=== PATIENT | male | born 1960 | race Caucasian/White ===

== ENCOUNTER 2019-06-29 13:16 | Emergency (ER) | payer SELFPAY ==
[2019-06-29] MEDS ORDERED: BENZONATATE 100 MG CAPSULE PO ONE ×2 (14:17→16:53)
[2019-06-29] MEDS ORDERED: NORMAL SALINE 1000 ML 1,000 ML IV ONE ×2 (14:17→16:36)
--- NOTE | 2019-06-29 14:18 | ER Document Report ---
ED Medical Screen (RME) - General Chief Complaint: Cough Stated Complaint: COUGH Time Seen by Provider: 06/29/19 14:10 Primary Care Provider: KEYLA PRIEST [Primary Care Provider] - Follow up as needed Notes: Patient is a 58-year-old male who presents the emergency department with a cough. He has had his cough for the last 4 days. Patient also admits to body aches. Patient has history of pneumonia in the past. Patient states that he also has bilateral ear pain. He has history of swimmer's ear. Exam: Cough noted. Clear lung sounds throughout. Tachycardia. I have greeted and performed a rapid initial assessment of this patient. A comprehensive ED assessment and evaluation of the patient, analysis of test results and completion of medical decision making process will be conducted by an additional ED providers. TRAVEL OUTSIDE OF THE [place] IN LAST 30 DAYS: No Past Medical History - Social History Chew tobacco use (# tins/day): No Frequency of alcohol use: Occasional Physical Exam - Vital signs Vitals: Temp Pulse Resp BP Pulse Ox 98.2 F 116 H 18 151/82 H 96 06/29/19 13:40 06/29/19 13:40 06/29/19 13:40 06/29/19 13:40 06/29/19 13:40 Course - Vital Signs Vital signs: Temp Pulse Resp BP Pulse Ox 98.2 F 116 H 18 151/82 H 96 06/29/19 13:40 06/29/19 13:40 06/29/19 13:40 06/29/19 13:40 06/29/19 13:40 Doctor's Discharge - Discharge Referrals: KEYLA PRIEST [Primary Care Provider] - Follow up as needed
[2019-06-29 14:37] LABS: ABSOLUTE BASOPHILS # (AUTO) 0.1 10^3/uL (0.0-0.2); ABSOLUTE EOSINOPHILS # (AUTO) 0.1 10^3/uL (0.0-0.6); ABSOLUTE LYMPHOCYTES (AUTO) 1.9 10^3/uL (0.5-4.7); ABSOLUTE MONOCYTES (AUTO) 0.9 10^3/uL (0.1-1.4); ABSOLUTE NEUT (AUTO) 5.2 10^3/uL (1.7-8.2); BASOPHILS % (AUTO) 0.7 % (0-2); EOSINOPHILS % (AUTO) 1.8 % (0-6); HEMATOCRIT 48.4 % (37.9-51.0); HEMOGLOBIN 16.5 g/dL (13.5-17.0); LYMPHOCYTES % (AUTO) 23.1 % (13-45); MEAN CORPUSCULAR HEMOGLOBIN 33.6 pg (27.0-33.4); MEAN CORPUSCULAR HGB CONC 34.2 g/dL (32.0-36.0); MEAN CORPUSCULAR VOLUME 98 fl (80-97); MONOCYTES % (AUTO) 11.4 % (3-13); PLATELET COUNT 266 10^3/uL (150-450); RED BLOOD COUNT 4.92 10^6/uL (4.35-5.55); RED CELL DISTRIBUTION WIDTH 14.2 % (11.5-14.0); TOTAL CELLS COUNTED % (AUTO) 100 %; WHITE BLOOD COUNT 8.2 10^3/uL (4.0-10.5)
[2019-06-29 14:56] LABS: ALBUMIN 4.3 g/dL (3.5-5.0); ALKALINE PHOSPHATASE 80 U/L (38-126); ANION GAP 12 (5-19); ASPARTATE AMINO TRANSFERASE 32 U/L (17-59); BILIRUBIN,DIRECT 0.2 mg/dL (0.0-0.4); BILIRUBIN,TOTAL 1.3 mg/dL (0.2-1.3); BLOOD UREA NITROGEN 10 mg/dL (7-20); CALCIUM 9.2 mg/dL (8.4-10.2); CARBON DIOXIDE 25 mmol/L (22-30); CHLORIDE 102 mmol/L (98-107); GLUCOSE 92 mg/dL (75-110); POTASSIUM 4.4 mmol/L (3.6-5.0); TOTAL PROTEIN 7.7 g/dL (6.3-8.2)
--- NOTE | 2019-06-29 15:11 | RADIOLOGY REPORT (SQ) ---
EXAM DESCRIPTION: CHEST 2 VIEWS COMPLETED DATE/TIME: 06/29/2019 2:37 pm REASON FOR STUDY: cough; body aches COMPARISON: None. EXAM PARAMETERS: NUMBER OF VIEWS: two views TECHNIQUE: Digital Frontal and Lateral radiographic views of the chest acquired. RADIATION DOSE: NA LIMITATIONS: none FINDINGS: LUNGS AND PLEURA: Strand of subsegmental atelectasis or parenchymal band in the right midd le lobe. There is no consolidation, pleural effusion or pneumothorax. MEDIASTINUM AND HILAR STRUCTURES: No mediastinal or hilar contour abnormality. HEART AND VASCULAR STRUCTURES: The cardiac silhouette and pulmonary vasculature are within normal [place] its. BONES: No acute findings. HARDWARE: None. OTHER: No other finding. IMPRESSION: No acute cardiopulmonary process. TECHNICAL DOCUMENTATION: JOB ID: [id number] [employer]- All Rights Reserved Reading location - IP/workstation name: [email or web address]
[2019-06-29 18:28] VITALS: BP 159/116
--- NOTE | 2019-06-29 18:48 | ER Document Report ---
ED Respiratory Problem - General Chief Complaint: Cough Stated Complaint: COUGH Time Seen by Provider: 06/29/19 14:10 Primary Care Provider: KEYLA PRIEST [NO LOCAL MD] - Follow up as needed Notes: Patient is a 58-year-old male history of hypertension on no medications presents to the emergency department for generalized cough for the last 4 days. He is denying any fevers. Is admitting to some generalized nasal congestion. States he did feel some generalized body aches but is denying that complaint at this time. Patient's denying any rashes, chest pain, shortness of breath, abdominal pain. Patient voices sometimes when he lays flat he feels the "phlegm in my throat" patient voices he has not been taking any [id number]-[id number] medications for same. Patient also voices he is an avid swimmer. Is concerned for otitis externa bilaterally. Patient's initial heart rate was noted to be elevated at today's visit, he was treated with normal saline solution and his heart rate has come down to normal. TRAVEL OUTSIDE OF THE [place] IN LAST 30 DAYS: No Past Medical History - General Information source: Patient - Social History Smoking Status: Never Smoker Chew tobacco use (# tins/day): No Frequency of alcohol use: Occasional Family History: Reviewed & Not Pertinent Patient has suicidal ideation: No Patient has homicidal ideation: No Review of Systems - Review of Systems Constitutional: denies: Fever EENT: See HPI Cardiovascular: See HPI Respiratory: See HPI Gastrointestinal: No symptoms reported Genitourinary: No symptoms reported Male Genitourinary: No symptoms reported Musculoskeletal: See HPI Skin: No symptoms reported Hematologic/Lymphatic: No symptoms reported Neurological/Psychological: No symptoms reported Physical Exam - Vital signs Vitals: Temp Pulse Resp BP Pulse Ox 98.2 F 116 H 18 151/82 H 96 06/29/19 13:40 06/29/19 13:40 06/29/19 13:40 06/29/19 13:40 06/29/19 13:40 - Notes Notes: GENERAL: Alert, interacts well. No acute distress. HEAD: Normocephalic, atraumatic. EYES: Pupils equal, round, and reactive to light. Extraocular movements intact. ENT: Oral mucosa moist, tongue midline. Nares patent, swollen turbinates noted bilaterally, TM's intact, nonerythematous, nonbulging bilaterally. No tragal tenderness noted bilaterally, bilateral canals within normal limits. NECK: Full range of motion. Supple. Trachea midline. No lymphadenopathy appreciated LUNGS: Clear to auscultation bilaterally, no wheezes, rales, or rhonchi. No respiratory distress. HEART: Regular rate and rhythm. No murmur ABDOMEN: Soft, non-tender. Non-distended. Bowel sounds present in all 4 quadrants. EXTREMITIES: Moves all 4 extremities spontaneously. No edema, normal radial and dorsalis pedis pulses bilaterally. No cyanosis. BACK: no cervical, thoracic, lumbar midline tenderness. No saddle anesthesia, normal distal neurovascular exam. NEUROLOGICAL: Alert and oriented x3. Normal speech. cranial nerves II through XII grossly intact PSYCH: Normal affect, normal mood. SKIN: Warm, dry, normal turgor. No rashes or lesions noted. Course - Re-evaluation Re-evalutation: 06/29/19 18:45 Laboratory 06/29/19 06/29/19 14:25 14:25 WBC 8.2 RBC 4.92 Hgb 16.5 Hct 48.4 MCV 98 H MCH 33.6 H MCHC 34.2 RDW 14.2 H Plt Count 266 Lymph % (Auto) 23.1 [place] % (Auto) 11.4 Eos % (Auto) 1.8 Baso % (Auto) 0.7 Absolute Neuts (auto) 5.2 Absolute Lymphs (auto) 1.9 Absolute Monos (auto) 0.9 Absolute Eos (auto) 0.1 Absolute Basos (auto) 0.1 Seg Neutrophils % 63.0 Sodium 139.0 Potassium 4.4 Chloride 102 Carbon Dioxide 25 Anion Gap 12 BUN 10 Creatinine 0.99 Est GFR ( Amer) > 60 Est GFR (MDRD) Non-Af > 60 Glucose 92 Calcium 9.2 Total Bilirubin 1.3 Direct Bilirubin 0.2 Neonat Total Bilirubin Not Reportable Neonat Direct Bilirubin Not Reportable Neonat Indirect Bili Not Reportable AST 32 ALT 37 Alkaline Phosphatase 80 Total Protein 7.7 Albumin 4.3 Chest X-Ray 06/29/19 14:17 IMPRESSION: No acute cardiopulmonary process. Upon my assessments patient's lung sounds are clear and equal in all schreiber. I discussed with him this is likely an upper respiratory infection. I discussed this is likely viral in nature and he does not need antibiotics. Patient then voices "I will just take my brothers antibiotics." I have discussed with him that is not my recommendation. I have discussed following up with a primary care provider for a second opinion as needed. Patient is no longer tachycardic, stable for discharge. - Vital Signs Vital signs: Temp Pulse Resp BP Pulse Ox 98.0 F 101 H 20 159/116 H 97 06/29/19 18:23 06/29/19 18:23 06/29/19 18:23 06/29/19 18:23 06/29/19 18:23 - Laboratory Result Diagrams: 06/29/19 14:25 06/29/19 14:25 Laboratory results interpreted by me: 06/29/19 14:25 MCV 98 H MCH 33.6 H RDW 14.2 H Discharge - Discharge Clinical Impression: Upper respiratory infection Qualifiers: URI type: unspecified viral URI Qualified Code(s): J06.9 - Acute upper respiratory infection, unspecified Condition: Stable Disposition: HOME, SELF-CARE Instructions: Upper Respiratory Illness ([facility]), Viral Syndrome ([facility]) Additional Instructions: As we discussed you have been seen and treated in the emergency department for an upper respiratory infection. Your chest x-ray reveals no signs of pneumonia, your lung sounds are clear and equal in all schreiber. Is very important that you get plenty of rest, stay well-hydrated and follow-up with a primary care provider. Phone numbers will be provided in this packet for [facility], [facility], these are clinics you can go to although you are uninsured. Please return to the emergency room for any concerns. Prescriptions: Mometasone Furoate [Nasonex] 1 spray NS Q12 #1 spray.pump Benzonatate [Tessalon Perles 100 mg Capsule] 100 mg PO ASDIR PRN #20 capsule PRN Reason: Forms: Return to Work, Elevated Blood Pressure Referrals: [facility] [Provider Group] - Follow up as needed [facility] [Provider Group] - Follow up as needed
== END 2019-06-29 19:00 | disposition home or self-care (01) ==
LOC: ER 13:16
DX: J06.9 Acute upper respiratory infection, unspecified (principal); B97.89 Other viral agents as the cause of diseases classified elsewhere; R05 Cough; I10 Essential (primary) hypertension; R09.81 Nasal congestion; R00.0 Tachycardia, unspecified
CPT/HCPCS: 99283; 96360; 36415; 85025; 80053; 71046; J7030

== ENCOUNTER → 2019-10-29 | Outpatient (CLI) | payer OTHER ==
[2019-10-29 13:14] LABS: ABSOLUTE EOSINOPHILS # (AUTO) 0.1 10^3/uL (0.0-0.6); BASOPHILS % (AUTO) 0.5 % (0-2); RED CELL DISTRIBUTION WIDTH 14.5 % (11.5-14.0); TOTAL CELLS COUNTED % (AUTO) 100 %
[2019-10-29 13:20] LABS: ABSOLUTE LYMPHOCYTES (AUTO) 1.9 10^3/uL (0.5-4.7); ABSOLUTE MONOCYTES (AUTO) 0.6 10^3/uL (0.1-1.4); EOSINOPHILS % (AUTO) 1.3 % (0-6); HEMATOCRIT 48.5 % (37.9-51.0); HEMOGLOBIN 16.6 g/dL (13.5-17.0); LYMPHOCYTES % (AUTO) 28.7 % (13-45); MEAN CORPUSCULAR HEMOGLOBIN 33.8 pg (27.0-33.4); MEAN CORPUSCULAR HGB CONC 34.2 g/dL (32.0-36.0); MEAN CORPUSCULAR VOLUME 99 fl (80-97); MONOCYTES % (AUTO) 8.7 % (3-13); PLATELET COUNT 290 10^3/uL (150-450); SEGMENTED NEUTROPHILS % (AUTO) 60.8 % (42-78); WHITE BLOOD COUNT 6.5 10^3/uL (4.0-10.5)
[2019-10-29 13:43] LABS: ALBUMIN 4.4 g/dL (3.5-5.0); ALKALINE PHOSPHATASE 85 U/L (38-126); ANION GAP 8 (5-19); ASPARTATE AMINO TRANSFERASE 43 U/L (17-59); BILIRUBIN,TOTAL 1.3 mg/dL (0.2-1.3); BLOOD UREA NITROGEN 15 mg/dL (7-20); CARBON DIOXIDE 28 mmol/L (22-30); CHLORIDE 102 mmol/L (98-107); CHOLESTEROL 250.64 mg/dL (0-200); GLUCOSE 90 mg/dL (75-110); POTASSIUM 5.2 mmol/L (3.6-5.0); TOTAL PROTEIN 7.6 g/dL (6.3-8.2); TRIGLYCERIDES 243 mg/dL (<150)
[2019-10-29 13:54] LABS: DIRECT LDL 174 mg/dL (<100)
[2019-10-29 13:55] LABS: VLDL CHOLESTEROL 48.6 mg/dL (10-31)
[2019-10-30 11:37] LABS: HEPATITS B SURFACE ANTIGEN Negative (Negative)
[2019-10-30 12:30] LABS: HEPATITIS C VIRUS ANTIBODY 2.3 s/co ratio (0.0-0.9)
== END ==
LOC: OD 12:39
DX: I10 Essential (primary) hypertension (principal)
CPT/HCPCS: 36415; 80053; 80061; 80074; 83036; 84153; 85025

== ENCOUNTER → 2019-11-13 | Outpatient (CLI) | payer OTHER ==
[2019-11-13 14:25] LABS: ANION GAP 11 (5-19); BLOOD UREA NITROGEN 9 mg/dL (7-20); CALCIUM 8.8 mg/dL (8.4-10.2); CARBON DIOXIDE 25 mmol/L (22-30); CHLORIDE 102 mmol/L (98-107); GLUCOSE 101 mg/dL (75-110); POTASSIUM 4.3 mmol/L (3.6-5.0)
--- NOTE | 2019-11-13 18:12 | EKG REPORT ---
SEVERITY:- ABNORMAL ECG - ATRIAL FIBRILLATION, V-RATE 86-144 BORDERLINE T ABNORMALITIES, INFERIOR LEADS : Confirmed by: Elizabeth Figueroa 13-Nov-2019 18:12:34
== END ==
LOC: CCC 13:11
DX: Z00.00 Encounter for general adult medical examination without abnormal findings (principal); R00.8 Other abnormalities of heart beat
CPT/HCPCS: 36415; 80048; 81270; 93005; 93010

== ENCOUNTER 2020-02-15 11:46 | Emergency (ER) | payer OTHER ==
--- NOTE | 2020-02-15 12:08 | ER Document Report ---
ED Medical Screen (RME) - General Chief Complaint: Low Back Pain Stated Complaint: LOWER BACK PAIN Time Seen by Provider: 02/15/20 12:05 Primary Care Provider: NICO [facility] [Primary Care Provider] - Follow up as needed Mode of Arrival: Ambulatory Information source: Patient Notes: 59-year-old male presented to ED for complaint of right flank pain for the last 3 to 4 days. He states child yesterday felt a little better so he mowed the grass and had a 3 beer and then the pain got so bad that it took him to his knees. He states he has a history of high blood pressure cholesterol. He states he does not smoke he does socially drink and does not use any illicit drugs. He states the pain is like a very hard pressure in his right kidney. He is alert oriented respirations regular nonlabored speaking in full sentences. I have greeted and performed a rapid initial assessment of this patient. A comprehensive ED assessment and evaluation of the patient, analysis of test results and completion of medical decision making process will be conducted by an additional ED providers. TRAVEL OUTSIDE OF THE [place] IN LAST 30 DAYS: No - Related Data Allergies/Adverse Reactions: No Known Allergies Allergy (Verified 02/15/20 12:01) Physical Exam - Vital signs Vitals: Temp Pulse Resp BP Pulse Ox 98.5 F 111 H 20 137/90 H 97 02/15/20 12:00 02/15/20 12:00 02/15/20 12:02/15/20 12:00 02/15/20 12:00 Course - Vital Signs Vital signs: Temp Pulse Resp BP Pulse Ox 98.5 F 111 H 20 137/90 H 97 02/15/20 12:02/15/20 12:00 02/15/20 12:02/15/20 12:00 02/15/20 12:00 Doctor's Discharge - Discharge Referrals: NICO [facility] [Primary Care Provider] - Follow up as needed
[2020-02-15] MEDS ORDERED: NORMAL SALINE 1000 ML 1,000 ML IV ONE (12:09)
--- NOTE | 2020-02-15 12:39 | RADIOLOGY REPORT (SQ) ---
EXAM DESCRIPTION: CT ABD/PELVIS NO ORAL OR IV IMAGES COMPLETED DATE/TIME: 02/15/2020 12:26 pm REASON FOR STUDY: Right flank pain COMPARISON: None. TECHNIQUE: CT scan of the abdomen and pelvis performed without intravenous or oral contrast. Images reviewed with lung, soft tissue, and bone windows. Reconstructed coronal and sagittal MPR images revi ewed. All images stored on PACS. All CT scanners at this facility use dose modulation, iterative reconstruction, and/or weight based d osing when appropriate to reduce radiation dose to as low as reasonably achievable (ALARA). [facility]: Dose Right [facility]: CareDose [facility]: Dose Right [facility]: Teradose 4D [facility]: Smart [employer] RADIATION DOSE: CT Rad equipment meets quality standard of care and radiation dose reduction techniq ues were employed. CTDIvol: 16.7 mGy. DLP: 983 mGy-cm.mGy. LIMITATIONS: None. FINDINGS: LOWER CHEST: No significant findings. No nodules or infiltrates. NON-CONTRASTED LIVER, SPLEEN, ADRENALS: Evaluation limited by lack of IV contrast. No identified sign ificant masses. PANCREAS: No masses. No peripancreatic inflammatory changes. GALLBLADDER: Gallstones. No inflammatory changes to suggest cholecystitis. RIGHT KIDNEY AND URETER: No suspicious masses. Assessment limited by lack of IV contrast. No signif icant calcifications. No hydronephrosis or hydroureter. LEFT KIDNEY AND URETER: No suspicious masses. Assessment limited by lack of IV contrast. No signifi cant calcifications. No hydronephrosis or hydroureter. AORTA AND RETROPERITONEUM: No aneurysm. No retroperitoneal masses or adenopathy. BOWEL AND PERITONEAL CAVITY: No obvious masses or inflammatory changes. No free fluid. Few colonic d iverticuli are present without CT signs of acute diverticulitis APPENDIX: Normal. PELVIS, BLADDER, AND ABDOMINAL WALL:No abnormal masses. No free fluid. Bladder normal. BONES: No significant findings. OTHER: No other significant finding. IMPRESSION: NO SIGNIFICANT OR ACUTE PROCESS IN THE ABDOMEN OR PELVIS. COMMENT: Quality ID # [id number]: Final reports with documentation of one or more dose reduction techniques (e.g., Automated exposure control, adjustment of the mA and/or kV according to patient size, use of iterative reconstruction technique) TECHNICAL DOCUMENTATION: JOB ID: [id number] 2010 [employer]- All Rights Reserved Reading location - IP/workstation name: [email or web address]
[2020-02-15 12:52] LABS: ALBUMIN 4.3 g/dL (3.5-5.0); ALKALINE PHOSPHATASE 86 U/L (38-126); ANION GAP 8 (5-19); ASPARTATE AMINO TRANSFERASE 35 U/L (17-59); BILIRUBIN,TOTAL 0.8 mg/dL (0.2-1.3); BLOOD UREA NITROGEN 14 mg/dL (7-20); CALCIUM 8.9 mg/dL (8.4-10.2); CARBON DIOXIDE 27 mmol/L (22-30); CHLORIDE 102 mmol/L (98-107); GLUCOSE 112 mg/dL (75-110); POTASSIUM 4.1 mmol/L (3.6-5.0); TOTAL PROTEIN 7.3 g/dL (6.3-8.2)
[2020-02-15 12:56] LABS: ABSOLUTE EOSINOPHILS # (AUTO) 0.1 10^3/uL (0.0-0.6); ABSOLUTE LYMPHOCYTES (AUTO) 2.1 10^3/uL (0.5-4.7); ABSOLUTE MONOCYTES (AUTO) 0.7 10^3/uL (0.1-1.4); ABSOLUTE NEUT (AUTO) 3.5 10^3/uL (1.7-8.2); BASOPHILS % (AUTO) 0.5 % (0-2); EOSINOPHILS % (AUTO) 2.2 % (0-6); HEMATOCRIT 46.3 % (37.9-51.0); LYMPHOCYTES % (AUTO) 32.8 % (13-45); MEAN CORPUSCULAR HEMOGLOBIN 33.8 pg (27.0-33.4); MEAN CORPUSCULAR HGB CONC 34.5 g/dL (32.0-36.0); MEAN CORPUSCULAR VOLUME 98 fl (80-97); MONOCYTES % (AUTO) 10.5 % (3-13); PLATELET COUNT 275 10^3/uL (150-450); RED BLOOD COUNT 4.73 10^6/uL (4.35-5.55); RED CELL DISTRIBUTION WIDTH 14.3 % (11.5-14.0); TOTAL CELLS COUNTED % (AUTO) 100 %; WHITE BLOOD COUNT 6.5 10^3/uL (4.0-10.5)
[2020-02-15] MEDS ORDERED: DIAZEPAM 5 MG TABLET PO ONE (13:30)
[2020-02-15] MEDS ORDERED: KETOROLAC TROMETHAMINE INJ/PF 30 MG/1 ML SDV IV ONE (13:30)
--- NOTE | 2020-02-15 13:36 | ER Document Report ---
ED GI/ - General Chief Complaint: Flank Pain Stated Complaint: LOWER BACK PAIN Time Seen by Provider: 02/15/20 12:05 Primary Care Provider: [facility] [NO LOCAL MD] - Follow up as needed Mode of Arrival: Ambulatory Notes: CHIEF COMPLAINT: Right low back pain for 5 days HPI: 59-year-old male presenting to the emergency department complaining of right lateral back pain over the last 5 to 6 days. Patient is unsure of whether he may have injured himself. Patient states that the pain does seem to come and go. It does not radiate around into the abdomen or flank region no dysuria. No hematuria. No penile or testicular pain. Has not had fever nausea or vomiting. States that certain movements do make the pain specifically worse. Patient states that he did mow the lawn on a riding lawnmower and use a weed Xavier yesterday and after having several beers and sitting down to try to get up and had this sharp discomfort again begin. He has not taken any medications for his discomfort while at home. ROS: See HPI - all other systems were reviewed and are otherwise negative Constitutional: no fever Eyes: no drainage, no blurred vision ENT: no runny nose, no sore throat Cardiovascular: no chest pain Resp: no SOB, no cough GI: no vomiting, no diarrhea, no abdominal pain : no dysuria Integumentary: no rash Allergy: no hives Musculoskeletal: no extremity pain or swelling, positive back pain Neurological: no numbness/tingling, no weakness MEDICATIONS: I agree with the patient medications as charted by the RN. ALLERGIES: I agree with the allergies as charted by the RN. PAST MEDICAL HISTORY/PAST SURGICAL HISTORY: Reviewed and agree as charted by RN. SOCIAL HISTORY: Reviewed and agree as charted by RN. FAMILY HISTORY: No significant familial comorbid conditions directly related to patient complaint EXAM: Reviewed vital signs as charted by RN. CONSTITUTIONAL: Alert and oriented and responds appropriately to questions. Well-appearing; well-nourished HEAD: Normocephalic; atraumatic EYES: Conjunctivae clear, sclerae non-icteric ENT: normal nose; no rhinorrhea; moist mucous membranes NECK: Supple without meningismus; non-tender; no cervical lymphadenopathy, no masses CARD: RRR; no murmurs, no clicks, no rubs, no gallops; symmetric distal pulses RESP: Normal chest excursion without splinting or tachypnea; breath sounds clear and equal bilaterally; no wheezes, no rhonchi, no rales, pulse oximetry 96% on room air not hypoxic ABD/GI: Obese, normal bowel sounds; non-distended; soft, non-tender, no rebound, no guarding; no palpable organomegaly or masses. BACK: The back appears normal and is non-tender to palpation directly over the cervical thoracic and lumbar spine. There is muscle spasm present in the upper right lumbar musculature, there is no CVA tenderness EXT: Normal ROM in all joints; non-tender to palpation; no cyanosis, no eff usions, no edema SKIN: Normal color for age and race; warm; dry; good turgor; no acute lesions no chao NEURO: Moves all extremities equally; Motor and sensory function intact. Strength equal 5/5 bilateral lower extremities. Sensation intact and equal bilateral lower extremities. Straight leg raise is negative. No saddle anesthesia on exam. DTRs 2+ intact and equal bilateral lower extremities. PSYCH: The patient's mood and manner are appropriate. Grooming and personal hygiene are appropriate. MDM: 59-year-old male with pain in the right lumbar musculature. Initial screening evaluation through triage process including lab work and CT imaging for kidney stone were all negative for acute findings, awaiting a urinalysis at this time but if negative I suspect that this is likely musculoskeletal in nature will place patient on anti-inflammatories and a muscle relaxer. He states a friend did give him a Robaxin last week and it did seem to help. He will likely need referral to orthopedics TRAVEL OUTSIDE OF THE [place] IN LAST 30 DAYS: No - Related Data Allergies/Adverse Reactions: No Known Allergies Allergy (Verified 02/15/20 12:01) Home Medications: simvastatin, amlodipine, aspirin, biofreeze, robaxin. Past Medical History - General Information source: Patient - Social History Smoking Status: Never Smoker Frequency of alcohol use: Occasional Drug Abuse: None Family History: Reviewed & Not Pertinent Patient has homicidal ideation: No Physical Exam - Vital signs Vitals: Temp Pulse Resp BP Pulse Ox 98.5 F 111 H 20 137/90 H 97 02/15/20 12:00 02/15/20 12:00 02/15/20 12:02/15/20 12:00 02/15/20 12:00 Course - Re-evaluation Re-evalutation: 02/15/20 15:09 Urine does show trace white cells but negative nitrites, he is afebrile. His pain is specific to movement. Low suspicion for UTI. Will culture urine and follow. This is likely musculoskeletal. Plan to discharge to follow-up with PCP or orthopedics - Vital Signs Vital signs: Temp Pulse Resp BP Pulse Ox 97.9 F 99 18 136/99 H 100 02/15/20 14:25 02/15/20 14:25 02/15/20 14:25 02/15/20 14:25 02/15/20 14:25 - Laboratory Result Diagrams: 02/15/20 12:14 02/15/20 12:14 Laboratory results interpreted by me: 02/15/20 02/15/20 02/15/20 12:14 12:14 14:30 MCV 98 H MCH 33.8 H RDW 14.3 H Sodium 136.5 L Glucose 112 H Ur Leukocyte Esterase TRACE H Discharge - Discharge Clinical Impression: Back pain Qualifiers: Back pain location: low back pain Chronicity: acute Back pain laterality: right Sciatica presence: without sciatica Qualified Code(s): M54.5 - Low back pain Condition: Stable Disposition: HOME, SELF-CARE Additional Instructions: Take the medications as prescribed, no driving if taking narcotics or muscle relaxers. Your imaging studies and lab work did not show acute emergent abnormalities. Your urinalysis did show some trace white cells but you are otherwise asymptomatic for urinary infection this will be cultured and if positive you will be called in some antibiotics. Follow-up closely with orth opedics and your PCP for further evaluation and treatment call for appointment Prescriptions: Diazepam [Valium 2 mg Tablet] 2 mg PO Q6HP PRN #15 tablet PRN Reason: Hydrocodone/Acetaminophen [[place] 5-325 mg Tablet] 1 tab PO Q4 PRN #15 tablet PRN Reason: Diclofenac Sodium [Voltaren 50 Mg Tablet.] 50 mg PO BID #20 tablet. Referrals: [facility] [NO LOCAL MD] - Follow up as needed JOSE C TERRAZAS DO [ACTIVE STAFF] - Follow up as needed
[2020-02-15 14:51] LABS: APPEARANCE,URINE CLEAR; BILIRUBIN,URINE NEGATIVE (NEGATIVE); COLOR,URINE YELLOW; GLUCOSE, URINE NEGATIVE (NEGATIVE); KETONES,URINE NEGATIVE (NEGATIVE); LEUKOCYTE ESTERASE,URINE TRACE (NEGATIVE); NITRITE,URINE NEGATIVE (NEGATIVE); PROTEIN,URINE NEGATIVE (NEGATIVE); URINE SPECIFIC GRAVITY 1.015; UROBILINOGEN,URINE NEGATIVE mg/dL (<2.0)
[2020-02-15 16:17] VITALS: BP 132/86
== END 2020-02-15 16:06 | disposition home or self-care (01) ==
LOC: ER 11:46
DX: M54.5 Low back pain (principal); R10.9 Unspecified abdominal pain; E66.9 Obesity, unspecified
CPT/HCPCS: 99284; 96361; 96374; 36415; 87086; 85025; 80053; 81001; 74176; J1885; J7030

== ENCOUNTER → 2020-03-28 | Outpatient (CLI) | payer OTHER ==
[2020-03-28 13:23] LABS: CHOLESTEROL 168.47 mg/dL (0-200); TRIGLYCERIDES 159 mg/dL (<150)
[2020-03-28 13:33] LABS: DIRECT LDL 95 mg/dL (<100)
[2020-03-28 13:36] LABS: VLDL CHOLESTEROL 31.8 mg/dL (10-31)
== END ==
LOC: OD 11:57
PROVIDERS: ATTEND Family Medicine
DX: E78.5 Hyperlipidemia, unspecified (principal)
CPT/HCPCS: 36415; 80061

== ENCOUNTER → 2020-04-22 | Outpatient (CLI) | payer OTHER ==
--- NOTE | 2020-04-23 13:48 | XCELERA REPORT ---
[address] [address] Transthoracic Echocardiogram Report Name: SHARMILA SIMMONS Age: 59 yrs Gender: Male : 1960 Patient Status: Outpatient Patient Location: Study Date: 04/22/2020 10:03 AM Height: 69 in Weight: 240 lb BSA: 2.2 m2 Procedure: A complete two-dimensional transthoracic echocardiogram was performed (2D, M-mode, spectral and color flow Doppler). Reason For Study: AFIB Ordering Physician: DAGOBERTO INTERIANO Performed By: Carmen Jarvis Interpretation Summary A complete two-dimensional transthoracic echocardiogram was performed (2D, M- mode, spectral and color flow Doppler). FINDINGS: technically difficult. LEFT VENTRICLE: LV Systolic function: LVEF is felt to be within normal limits. Best estimate is approximately LVEF is 60 to 65%. LV Diastolic Function: cannot accurately commented on diastolic dysfunction due to atrial fibrillation. Wall motion: not all wall segment were well visualised. Regional wall motion cannot be accurately commented upon. Left ventricular chamber size: is within normal limit. Left ventricular wall thickness: is increased indicative of Mild LVH. RIGHT VENTRICLE: RV systolic function: is felt to be within normal limit. Right Ventricle Size: is within normal limits. LEFT ATRIUM size: is mildly dilated. RIGHT ATRIUM size: is within normal limit. INTER ATRIAL SEPTUM: No definite atrial septal defect noted however a small PFO could be missed. AORTIC ROOT: seems to be within normal limits. ASCENDING AORTA: is not well visualized. INFERIOR VENA CAVA: was not well visualized. VALVES: MITRAL VALVE: Leaflets are mildly thickened. Mobility seems to be within normal limits. Mitral Regurgitation: Trace mitral regurgitation is noted. Mitral Stenosis: No mitral stenosis noted. Mitral valve prolapse: none noted. AORTIC VALVE: all leaflets not well visualised but with mild thickening and adequate excursion. Aortic stenosis: No aortic stenosis noted. Aortic regurgitation: No aortic incompetence noted. TRICUSPID VALVE: mobility and structures within normal limit. Tricuspid stenosis: no tricuspid stenosis noted. Tricuspid regurgitation: Trace tricuspid regurgitation noted. Estimated RVS : cannot be accurately commented upon but possibly at upper limit of normal. PULMONARY VALVE: was not well visualized but no significant abnormalities suspected. Pulmonary stenosis: no pulmonary stenosis noted. Pulmonary regurgitation: no significant pulmonary regurgitation noted. MASSES AND THROMBUS: No definite intracardiac thrombus or masses are noted. PERICARDIUM: No pericardial effusion was noted. IMPRESSION: 1. Normal LVEF. 2. Mild LVH noted. 3. Cannot comment on diastolic function, due to underlying atrial fibrillation. 4. No significant valvular stenosis or regurgitation noted. 5. LA is mildly dilated. 6. Echocardiogram was technically difficult therefore clinical correlation is requested. MMode/2D Measurements & Calculations RVDd: 2.6 cm LVIDd: 5.1 cm FS: 34.7 % Ao root diam: 3.4 cm IVSd: 1.3 cm LVIDs: 3.3 cm EDV(Teich): 125.6 ml Ao root area: 8.8 cm2 LVPWd: 1.2 cm ESV(Teich): 45.8 ml EF(Teich): 63.6 % Doppler Measurements & Calculations MV E max cyndy: MV dec slope: Ao V2 max: LV V1 max P.6 cm/sec 624.4 cm/sec2 121.8 cm/sec 4.1 mmHg MV dec time: Ao max P.9 mmHg LV V1 max: 0.18 sec 100.9 cm/sec MR max cyndy: PA V2 max: PI end-d cyndy: TR max cyndy: 538.0 cm/sec 66.8 cm/sec 108.4 cm/sec 212.8 cm/sec MR max PG: PA max P.8 mmHg TR max P.8 mmHg 18.1 mmHg : DAGOBERTO INTERIANO Shyamal
== END ==
LOC: SP 10:48
PROVIDERS: ATTEND Internal Medicine
DX: I48.91 Unspecified atrial fibrillation (principal)
CPT/HCPCS: 93306

== ENCOUNTER → 2020-09-06 | Outpatient (CLI) | payer OTHER ==
--- NOTE | 2020-09-06 12:53 | ER [facility] ASSESSMENT REPORT ---
Intake - In the Last 14 days Have you traveled outside [place]?: No Have you been in close contact with someone CONFIRMED: Yes Worked in Healthcare?: No - Symptoms Subjective Fever([facility] feverish): No Chills: No Muscule Aches: Yes Runny Nose: Yes Sore Throat: No Cough (New or worsening chronic cough): No Shortness of breath: No Nausea or Vomiting: No Headache: No Abdominal Pain: No Diarrhea(3 or more loose stools in last 24 hours): Yes - Do you have any of the following Chronic lung disease: Asthma or emphysema or COPD: No Cystic Fibrosis: No Diabetes: No High Blood Pressure: Yes Cardiovascular Disease: No Chronic Kidney Disease: No Chronic Liver Disease: No Chronic blood disorder like Sickle Cell Disease: No Weak immune system due to disease or medication: No Neurologic condition that limits movement: No Developmental delay - Moderate to Severe: No Recent (within past 2 weeks) or current : No Morbid Obesity (>100 pounds over ideal weight): No - Objective Temperature: 98.2 F Pulse Rate: 84 Respiratory Rate: 16 Blood Pressure: 116/69 O2 Sat by Pulse Oximetry: 95 Objective: Given above, testing performed: If Testing Performed: Test Specimen Type Sent to General - General Information source: Patient Notes: Patient presents to the [facility] for screening for the coronavirus. Patient reports exposure to someone who tested positive. - Related Data Allergies/Adverse Reactions: No Known Allergies Allergy (Verified 02/15/20 12:01) Past Medical History - General Information source: Patient - Social History Smoking Status: Never Smoker Family History: Reviewed & Not Pertinent - Past Medical History Cardiac Medical History: Reports: Hx Hypercholesterolemia, Hx Hypertension Surgical Hx: Negative Physical Exam - Notes Notes: The patient was evaluated during the global Covid 19 pandemic, and that di agnosis was suspected/considered upon their initial presentation. Their evaluation and testing was consistent with current guidelines for patients who present with complaints or symptoms that may be related to Covid 19. Full physical exam could not be performed due to covid 19 isolation protocols. Constitutional: Nontoxic appearance, no acute distress Eyes: Nonicteric sclera clear Cardiovascular: Heart rate and rhythm regular Respiratory: Sounds clear bilaterally, nonlabored breathing, no use of accessory muscles, no tachypnea Gastrointestinal: Abdomen not distended Muculoskeletal: Moves all extremities well Skin: Normal color Neuro: Awake alert oriented, normal speech Psych: Normal mood and affect Diagnostic Results Laboratory Results: Patient presents with exposure worrisome for possible Covid 19. Patient does not have emergency worrying symptoms such as difficulty breathing, shortness of breath, chest pain, pressure, confusion or cyanosis. Patient appears suitable for discharge as vital signs are stable and patient is nontoxic in appearance. Good return precautions have been discussed with patient, patient verbalized understanding and is agreeable with discharge plan of care at this time. Patient Education/Counseling Counseling/Education: Patient was provided with discharge information including: As a person under investigation for Covid 19, the [facility], division of public health advises you to adhere to the following guidance until your test results are reported to you. If your test result is positive, you will receive additional information from your provider and your local health department at that time. Remain at home until you are cleared by the health provider or public health authorities. Keep a log of visitors to your home, notify any visitors to your home of your isolation status. If you plan to move to a new address or leave the [facility], notify the local health department in your County. Call your doctor or seek care if you have an urgent medical need. Before seeking medical care, call ahead to get instructions from the provider before arriving at the medical office clinic or hospital. Notify them that you are being tested for the virus that causes Covid 19 so that arrangements can be made, as necessary, to prevent transmission to others in the healthcare setting. Next, notify the local health department in your county. If a medical emergency arises and you need to call 911, inform the first respon ders that you are being tested for the virus that causes Covid 19. Next, notify the local health department in your county. [facility] Discharge - Discharge Clinical Impression: Encounter for screening for COVID-19 Condition: Stable Disposition: Home; Selfcare
[2020-09-06 13:09] VITALS: BP 116/69
[2020-09-06 14:11] LABS: A TYPE INFLUENZA AG NEGATIVE (NEGATIVE); B INFLUENZA AG NEGATIVE (NEGATIVE)
== END ==
LOC: RDC 12:21
PROVIDERS: ATTEND Nurse Practitioner Family
DX: U07.1 COVID-19 (principal); R09.89 Other specified symptoms and signs involving the circulatory and respiratory systems; M79.10 Myalgia, unspecified site; R19.7 Diarrhea, unspecified; I10 Essential (primary) hypertension; E78.00 Pure hypercholesterolemia, unspecified
CPT/HCPCS: 87070; 87880; 87635; 87804; 99202; 99211; C9803